=== PATIENT | male | born 1950 | race Caucasian/White ===

== ENCOUNTER 2019-03-16 11:32 | Inpatient (IN) ==
[2019-03-16] MEDS ORDERED: ROCEPHIN 2 GM in NS 50 ML IV ONE (12:30)
[2019-03-16 13:04] LABS: URINE SOURCE CATH
[2019-03-16 13:24] LABS: ALB/GLOB RATIO 1.1; ALBUMIN 3.5 g/dL (3.5-5.0); CALCIUM 9.4 mg/dL (8.8-10.2); CREATININE 1.2 mg/dL (0.7-1.2); TOTAL BILIRUBIN 2.08 mg/dL (0.20-1.00); TOTAL PROTEIN 6.7 g/dL (6.3-8.3)
[2019-03-16 13:27] LABS: BILIRUBIN URINE MODERATE (NEGATIVE); BLOOD URINE SMALL (NEGATIVE); CLARITY CLEAR (CLEAR); COLOR YELLOW; GLUCOSE URINE 100 mg/dL (NEGATIVE); KETONE URINE TRACE mg/dL (NEGATIVE); LEUKOCYTES URINE TRACE (NEGATIVE); NITRITE URINE POSITIVE (NEGATIVE); PH URINE 5.5; PROTEIN URINE >=300 mg/dL (NEGATIVE); SP GRAVITY URINE 1.015; UROBILINOGEN URINE >= 8.0 EU/dL (0.2-1.0)
[2019-03-16 13:28] LABS: BASO# 0.04 X1000 (0.0-0.2); BASO% 0.2 % (0.0-0.8); EOS# 0.13 X1000 (0.0-0.7); EOS% 0.8 % (0.0-10.0); HEMATOCRIT 38.4 % (42.0-52.0); HEMOGLOBIN 12.3 g/dL (14.0-18.0); IMM GRAN# 0.03 X1000 (0.0-0.04); IMM GRAN% 0.2 % (0.0-0.5); LYMPH# 0.69 X1000 (1.2-3.4); LYMPH% 4.2 % (20.5-51.1); MCH 29.1 PG (27-31); MCV 90.8 FL (81-99); MONO# 1.02 X1000 (0.11-0.59); MONO% 6.2 % (1.7-9.3); MPV 9.5 FL (7.4-10.4); NEUT# 14.54 X1000 (1.4-6.5); NEUT% 88.4 % (42.2-75.2); PLT 195 X1000 (130-400); RBC 4.23 XMIL (4.7-6.1); RDW 13.2 % (11.5-14.5); WBC 16.45 X1000 (4.8-10.8)
[2019-03-16 13:43] LABS: URINE RBC <10 /HPF (<10); URINE WBC >10 /HPF (<10)
[2019-03-16] MEDS ORDERED: VANCOMYCIN 1 GM/NS 1 GM/250 ML IVPB IV ONE (13:59)
[2019-03-16 14:08] LABS: LYMPHS 10 % (21-51); MONO 6 % (1-9); SEGS 84 % (42-75)
[2019-03-16 14:45] LABS: INR 1.17; PROTIME 15.1 Seconds (11.0-16.0)
[2019-03-16 14:46] LABS: PTT 36.5 Seconds (22.3-41.8)
[2019-03-16 14:49] LABS: URINE SOURCE CATH
--- NOTE | 2019-03-16 14:55 | Diag Imaging Result Doc PS360 ---
CHEST-1 VIEW - 03/16/2019 INDICATION: Sepsis protocol COMPARISON: 09/28/2016 FINDINGS: The lungs are normally expanded and clear. Heart size and mediastinal contours are normal. No pneumothorax or pleural effusion. IMPRESSION: Negative exam. Electronically signed by Derek August 03/16/2019 2:53 PM
[2019-03-16 15:09] LABS: BILIRUBIN URINE MODERATE (NEGATIVE); BLOOD URINE SMALL (NEGATIVE); COLOR YELLOW; GLUCOSE URINE NEGATIVE (NEGATIVE); KETONE URINE TRACE mg/dL (NEGATIVE); LEUKOCYTES URINE SMALL (NEGATIVE); NITRITE URINE POSITIVE (NEGATIVE); PROTEIN URINE 100 mg/dL (NEGATIVE); SP GRAVITY URINE 1.023; TURBIDITY URINE HAZY (CLEAR); UROBILINOGEN URINE 6 mg/dL (NORMAL)
[2019-03-16 15:10] LABS: UR EPITHELIAL CELLS <10 /HPF (<10); URINE BACTERIA NEGATIVE /HPF; URINE RBC <10 /HPF (<10)
[2019-03-16 15:11] LABS: MAGNESIUM 1.9 mg/dL (1.5-2.7)
[2019-03-16] MEDS ORDERED: DESYREL PO PRN (17:41)
[2019-03-16] MEDS ORDERED: TOBRAMYCIN 80 MG in NS 50 ML IV ONE (17:41)
[2019-03-16] MEDS ORDERED: NORCO-10 PO PRN (17:41)
[2019-03-16] MEDS ORDERED: SODIUM CHLORIDE 0.9% INJ PRN (17:41)
[2019-03-16] MEDS ORDERED: PHENERGAN IV PRN (17:41)
[2019-03-16] MEDS: NS 1,000 ML IV SCH (19:42)
[2019-03-16] MEDS: LEVAQUIN 500 MG/D5W 500 MG/100 ML IVPB IV SCH (19:43)
[2019-03-16] MEDS: LOVENOX SUBQ SCH (21:44)
[2019-03-16] MEDS: ZOSYN 4.5 GM in NS 100 ML IV SCH (22:19)
[2019-03-16] MEDS: FLOMAX PO SCH (23:25)
[2019-03-17] MEDS: ZOSYN 4.5 GM in NS 100 ML IV SCH ×4 (03:42→20:20)
[2019-03-17] MEDS: PRILOSEC PO SCH (06:00)
[2019-03-17 07:56] LABS: BASO# 0.03 X1000 (0.0-0.2); BASO% 0.2 % (0.0-0.8); EOS% 3.1 % (0.0-10.0); HEMATOCRIT 37.7 % (42.0-52.0); IMM GRAN# 0.02 X1000 (0.0-0.04); IMM GRAN% 0.2 % (0.0-0.5); LYMPH# 0.89 X1000 (1.2-3.4); LYMPH% 6.9 % (20.5-51.1); MCH 29.1 PG (27-31); MCHC 31.8 g/dL (33-37); MCV 91.5 FL (81-99); MONO# 0.89 X1000 (0.11-0.59); MONO% 6.9 % (1.7-9.3); MPV 9.4 FL (7.4-10.4); NEUT# 10.61 X1000 (1.4-6.5); NEUT% 82.7 % (42.2-75.2); PLT 215 X1000 (130-400); RBC 4.12 XMIL (4.7-6.1); RDW 13.4 % (11.5-14.5); WBC 12.84 X1000 (4.8-10.8)
[2019-03-17 08:18] LABS: CALCIUM 9.2 mg/dL (8.8-10.2); CREATININE 1.3 mg/dL (0.7-1.2); POTASSIUM 4.1 mmol/L (3.5-5.1)
[2019-03-17] MEDS: NS 1,000 ML IV SCH ×3 (08:21→20:20)
--- NOTE | 2019-03-17 10:57 | PROGRESS NOTE ---
DATE: 03/17/2019 SUBJECTIVE: Mr. Gibbs was admitted to [facility] with UTI with sepsis. We initiated the sepsis protocol. Lactate levels have been low. There is no suggestion of end-organ damage. White count has dropped from 16,000 to 12,000. He continues with dysuria but has less urinary frequency. We had started him on broad-spectrum antibiotics including Levaquin and Zosyn and tobramycin. He does have a history of obstructive sleep apnea. He is wearing CPAP at home and he is using his CPAP machine here. He is sleeping. He had somewhat of a fitful night last night. He reports that he feels rested this morning. He is not having any excessive daytime drowsiness. OBJECTIVE: Vital Signs: Temperature 98.8 degrees pulse 82, respirations 18, BP 127/49, CV: Regular rate and rhythm. Lungs: Clear. Abdomen: Soft, nontender, with active bowel sounds. Back: No CVA tenderness. ASSESSMENT AND PLAN: 1. Urinary tract infection with sepsis. Clinically, he is better. He had fevers as high as 102.6 degrees yesterday. He has not had any fever since admission. We will continue fluid resuscitation and broad-spectrum antibiotics including tobramycin, Zosyn and Levaquin pending blood and urine cultures. 2. Obstructive sleep apnea. We will continue CPAP at night. cc: Sravanthi Sutton MD
--- NOTE | 2019-03-17 13:45 | HISTORY AND PHYSICAL ---
CHIEF COMPLAINT: Fever and chills. HISTORY OF PRESENT ILLNESS: Mr. Victor M Gibbs is a 69-year-old gentleman, with a history of multiple medical problems including obesity, COPD, previous history of tobacco abuse, obstructive sleep apnea, chronic low back pain secondary to lumbar spinal stenosis with neurogenic claudication, BPH, and recurrent nephrolithiasis. He recently was hospitalized at [facility] in [place], [place] where he underwent a successful left total knee. He presented to the ER with a 2-day history of fever as high as 103 degrees, hard shaking rigors, dysuria, increased urinary frequency voiding small amounts of urine, and low back pain. On arrival to the ER he was noted to have a leukocytosis of 16,000 and a fever of 102.4 degrees. A urinalysis demonstrated trace glucose, small blood, positive nitrites, and positive leukocyte esterase. PAST MEDICAL HISTORY: Obstructive sleep apnea, obesity, BPH, COPD, and previous history of tobacco abuse. PAST SURGICAL HISTORY: Left total knee, right total knee, lumbar fusion, multiple lithotripsies. ALLERGIES: No known drug allergies. FAMILY HISTORY: Noncontributory. SOCIAL HISTORY: He is a former smoker. He does not consume alcoholic beverages. He is and lives with his spouse. MEDICATIONS: Flomax 0.4 mg daily. Prevacid 30 mg daily. Aspirin 81 mg daily. REVIEW OF SYSTEMS: Constitutional: He denies any recent weight gain or weight loss. HEENT: He wears glasses. He is somewhat hard of hearing. CV: No chest pain, palpitations, or anginal equivalents. Pulmonary: No shortness of breath, PND or orthopnea. GI: No reflux, dysphagia, melena, hematochezia, change in bowel habits, or rectal bleeding. Endocrine: No polyuria, no polydipsia. No cold or heat intolerance. Skin: No easy bruisability. : See HPI. Musculoskeletal: See HPI. Neurologic: No migraines or seizures. Psychiatric: No history of depression. PHYSICAL EXAMINATION: GENERAL: This is an acutely ill-appearing 69-year-old gentleman in no apparent distress. He is awake and easily arousable. He is oriented to name, place, and time. VITAL SIGNS: Temperature 102.4 degrees, pulse 82, respirations 16, BP 134/96 HEENT: Fundi with arteriolar wall thickening. Pupils equal, round, and reactive to light. Extraocular eye movements intact. NECK: Supple. No masses, JVD or bruits. CV: Regular rate and rhythm. LUNGS: Clear. ABDOMEN: Soft, nontender, with active bowel sounds. No hepatosplenomegaly. No abdominal bruits. EXTREMITIES: Without edema. SKIN: No palpable purpura. BACK: No CVA tenderness. /RECTAL: Deferred. NEUROLOGIC: Nonfocal. DIAGNOSTIC DATA: Various laboratory studies were obtained. A urinalysis demonstrated trace glucose, small blood, positive nitrites, and positive leukocyte esterase. CBC demonstrated a white count of 16.4, hemoglobin 12.3, hematocrit 38.4, and a platelet count of 195,000. He had a left shift. Electrolytes demonstrated the following, sodium 136, potassium 4.0, carbon dioxide 24, BUN 15, creatinine 1.2, and glucose 107. Plasma lactate 0.9. ASSESSMENT AND PLAN: 1. Urinary tract infection with sepsis. He meets the initial criteria for sepsis. He has fever of 102.4 degrees, he has a leukocytosis with a left shift, he has an obvious urinary tract infection. I will begin Levaquin, Zosyn, and tobramycin pending blood and urine cultures. We will rehydrate him with normal saline. We will continue the sepsis protocol. 2. Obstructive sleep apnea. We will continue CPAP at night. 3. Gastroesophageal reflux disease. We will elevate the head of the bed to 45 degrees and continue Prevacid. DISPOSITION: Given his comorbid conditions and clinical presentation, admission to the hospital is necessary. Untreated sepsis certainly can increase the risk of . I anticipate that he will be in the hospital for at least 2 midnights and I will therefore place him in inpatient status. We will begin Lovenox as needed for DVT prophylaxis. cc: Sravanthi Sutton MD
[2019-03-17] MEDS: LEVAQUIN 500 MG/D5W 500 MG/100 ML IVPB IV SCH (18:28)
[2019-03-17] MEDS: FLOMAX PO SCH (20:21)
[2019-03-17] MEDS: TYLENOL PO PRN (20:21)
[2019-03-17] MEDS: LOVENOX SUBQ SCH (20:21)
[2019-03-18] MEDS: ZOSYN 4.5 GM in NS 100 ML IV SCH (01:12)
[2019-03-18] MEDS: PRILOSEC PO SCH (06:27)
[2019-03-18] MEDS ORDERED: TOBRAMYCIN 80 MG in NS 50 ML IV ONE (09:27)
[2019-03-18] MEDS: FLOMAX PO SCH ×2 (10:37→20:21)
--- NOTE | 2019-03-18 11:05 | PROGRESS NOTE ---
DATE: 03/18/2019 SUBJECTIVE: Mr. Gibbs was admitted to [facility] with a UTI with sepsis. Clinically, he feels much better. He is awake and easily arousable. He is oriented to name, place, and time. He still has some dysuria and increased urinary frequency, but denies any low back pain. Urine cultures grew out Pseudomonas aeruginosa. OBJECTIVE: Vital Signs: Temperature 98.9 degrees, pulse 83, respirations 16, BP 152/62. Cardiovascular: Regular rate and rhythm. Lungs: Clear. Abdomen: Soft, nontender, with active bowel sounds. No hepatosplenomegaly. No abdominal bruits. ASSESSMENT AND PLAN: Urinary tract infection with sepsis. Clinically, he is much better. Urine cultures grew out Pseudomonas aeruginosa. I will stop the Zosyn, continue Levaquin and bolus him with tobramycin. I would like to see him afebrile for a full 48 hours before we transition him to oral medications. I will check a CBC and a BMP today. cc: Sravanthi Sutton MD
[2019-03-18 11:20] LABS: BASO# 0.05 X1000 (0.0-0.2); BASO% 0.6 % (0.0-0.8); EOS% 4.8 % (0.0-10.0); HEMATOCRIT 37.3 % (42.0-52.0); HEMOGLOBIN 11.8 g/dL (14.0-18.0); IMM GRAN# 0.03 X1000 (0.0-0.04); IMM GRAN% 0.4 % (0.0-0.5); LYMPH# 0.82 X1000 (1.2-3.4); LYMPH% 9.8 % (20.5-51.1); MCH 28.9 PG (27-31); MCHC 31.6 g/dL (33-37); MCV 91.2 FL (81-99); MONO# 0.74 X1000 (0.11-0.59); MONO% 8.8 % (1.7-9.3); MPV 9.4 FL (7.4-10.4); NEUT# 6.34 X1000 (1.4-6.5); NEUT% 75.6 % (42.2-75.2); PLT 222 X1000 (130-400); RBC 4.09 XMIL (4.7-6.1); RDW 13.3 % (11.5-14.5); WBC 8.38 X1000 (4.8-10.8)
[2019-03-18 11:42] LABS: CALCIUM 9.6 mg/dL (8.8-10.2); CREATININE 1.2 mg/dL (0.7-1.2); POTASSIUM 3.9 mmol/L (3.5-5.1)
[2019-03-18] MEDS: NS 1,000 ML IV SCH ×2 (14:40→14:41)
[2019-03-18] MEDS: LEVAQUIN 500 MG/D5W 500 MG/100 ML IVPB IV SCH (18:05)
[2019-03-18] MEDS: TYLENOL PO PRN (20:20)
[2019-03-18] MEDS: LOVENOX SUBQ SCH (20:21)
[2019-03-19] MEDS: NS 1,000 ML IV SCH (00:33)
[2019-03-19] MEDS ORDERED: PRILOSEC PO SCH (07:00)
[2019-03-19 07:34] VITALS: BP 138/63
[2019-03-19] MEDS: FLOMAX PO SCH (08:57)
[2019-03-19] MEDS ORDERED: LEVAQUIN PO SCH (09:00)
[2019-03-19] MEDS ORDERED: NON-FORMULARY MED (Lansoprazole [Prevacid] 30 MG) PO SCH (09:00)
--- NOTE | 2019-03-20 20:50 | DISCHARGE SUMMARY ---
ADMISSION DATE: 03/16/2019 DISCHARGE DATE: 03/19/2019 DISCHARGE DIAGNOSES: 1. Urinary tract infection with sepsis. 2. Obstructive sleep apnea. 3. Chronic obstructive pulmonary disease. 4. History of nicotine abuse in the past. 5. Chronic low back pain secondary to lumbar spinal stenosis with neurogenic claudication. 6. Benign prostatic hypertrophy with signs of urinary obstruction. 7. Nocturia. DISCHARGE INSTRUCTIONS: 1. Return to clinic in 10 days to see me, Dr. Murray Sutton, in anticipation of a transition of care visit. 2. Activity as tolerated. 3. Healthy heart diet. 4. Levofloxacin 500 mg daily for 12 days, Prevacid 30 mg daily, Flomax 0.4 mg b.i.d. DISCHARGE PHYSICAL EXAMINATION: This is a well-developed, well-nourished, 69-year-old gentleman, no apparent distress. He is afebrile. Vital signs are stable. CV: Regular rate and rhythm. Lungs: Clear. Abdomen: Soft, nontender, with active bowel sounds. Mr. Victor M Gibbs presented to the ER with a 2-day history of fever as high as 103 degrees, hard shaking rigors, dysuria, increased urinary frequency and low back pain. He initially met the criteria for the sepsis protocol and the sepsis protocol was initiated. The patient was rehydrated with normal saline and was started on broad-spectrum antibiotics including Levaquin, Zosyn and tobramycin pending blood and urine cultures. A urine culture grew out Pseudomonas aeruginosa. Blood cultures x2 were negative. With aggressive fluid resuscitation and IV antibiotics, he improved rapidly from a clinical standpoint. He defervesced and remained afebrile. He no longer had any dysuria or increased urinary frequency. We simplified his medications to a combination of IV Levaquin and tobramycin. Once he remained afebrile for 48 hours he was transitioned to oral Levaquin which he will take for an additional 12 days. I will recheck a urine culture following completion of antibiotic therapy. He does have a longstanding history of BPH. He has persistent nocturia, diminished urinary stream and postvoid dribbling. He had been taking Flomax 0.4 mg daily. I increased the Flomax to 0.4 mg b.i.d. He does have a longstanding history of gastroesophageal reflux disease. We initiated anti-reflux precautions and continued Prevacid 30 mg daily. Having reached maximum hospital benefit, the patient was discharged in stable condition. cc: Sravanthi Sutton MD
== END 2019-03-19 09:59 | disposition home or self-care (01) | DRG 872 ==
LOC: ED 11:32 → EDIPHOLD 16:42 → 3N 18:58
PROVIDERS: ADMIT Internal Medicine; ATTEND Internal Medicine

== ENCOUNTER 2019-05-10 10:57 | Inpatient (IN) ==
--- NOTE | 2019-05-10 11:51 | PROVIDER DOCUMENTATION ---
HPI-General Adult - General Chief Complaint: Extremity Pain Stated Complaint: KNOT ON LEFT HIP Time Seen by Provider: 05/10/19 11:11 Source: patient Allergies/Adverse Reactions: Patient Allergies Allergy/AdvReac Type Severity Reaction Status Date / Time No Known Allergies Allergy Verified 03/02/16 09:56 Home Medications: Home Medication List Medication Instructions Recorded Confirmed Last Taken Type Lansoprazole [Prevacid] 30 mg PO DAILY 03/16/19 05/10/19 03/14/19 07:00 History Tamsulosin [Flomax] 0.4 mg PO QHS #60 cap 03/19/19 05/10/19 Unknown Rx Lansoprazole 30 mg PO DAILY 05/10/19 05/10/19 Unknown History Prednisone 10 mg PO DAILY 05/10/19 05/10/19 Unknown History Tamsulosin [Flomax] 0.4 mg PO BID 05/10/19 05/10/19 Unknown History - History of Present Illness -Gen Adult Nature of Presenting Problems: Pt.is 69 yom that presents with c/o knot on his left buttock. He reports it is causing him problems urinating and having BM's. Pt. reports symptoms for several days. He denies any other complaints. Location of Pain/Injury: reports: genitalia. denies: none, head, face, mouth, neck, chest, upper extremity, hand(s), abdomen, back, pelvis, lower extremity, feet, upper body, lower body, generalized, other Pain Radiation: reports: no radiation. denies: arm(s), back, buttocks, chest, epigastric, feet, groin, jaw, flank (L), legs (lower), LLQ, LUQ, neck, periumbilical, flank (R), RLQ, RUQ, shoulder(s), scapula, scrotal, sternal notch, suprapubic, legs (upper), urethral, vaginal, other Quality of Pain: reports: aching. denies: burning, pressure, sharp, tightness Severity: reports: moderate. denies: mild, severe Onset/Duration: reports: gradual, 3 days ago Timing: reports: still present. denies: improving, intermittent, getting worse Context/Activities at Onset: reports: none. denies: light activity, moderate activity, vigorous activity, recent emotional stress, recent physical stress, recent trauma history, possible bad food, cold exposure, eating, out of country travel, rest, sleep, sexual activity, other Modifying Factors: improves with: nothing Associated Symptoms: reports: other (There is a large erythemic and indurated area to the inside of the left buttock that goes near the anus. No fluctuance is noted.). denies: denies symptoms, anxiety, arm pain, back/neck pain, chest pain, constipation, cough, diaphoresis, diarrhea, dizziness, EENT symptoms, fatigue, fever/chills, genitourinary problems, headaches, heartburn, joint pain, loss of appetite, malaise, muscle aches, sinus congestion/drainage, nausea, rash, seizure, shortness of breath, sensory/motor loss, pain with inspiration, swelling/mass in abdomen, syncope, vomiting, weakness, trouble walking Similar Symptoms Previously?: Yes Recently seen or treated by another doctor?: No Review of Systems - Adult - REVIEW OF SYSTEMS - ADULT Constitutional: reports: no symptoms reported Eyes: reports: no symptoms reported Ears, Nose, Mouth & Throat: reports: no symptoms reported Cardiovascular: reports: no symptoms reported Respiratory: reports: no symptoms reported Gastrointestinal: reports: no symptoms reported Genitourinary: reports: no symptoms reported Musculoskeletal: reports: no symptoms reported Integumentary: reports: see HPI, skin thickening (There is a large erythemic and indurated area to the inside of the left buttock that goes near the anus. No fluctuance is noted.). denies: hair loss, mole changes, rash Neurological: reports: no symptoms reported Psychiatric: reports: no symptoms reported Past History - Adult - PAST MEDICAL HISTORY-ADULT Review of Records: reports: Old Records Reviewed, Nursing Assessment Review, Medications Reviewed, Social history reviewed & non-contributory. - IMMUNIZATION STATUS Childhood Immunizations: See Nurse Assessment Flu Vaccine: See Nurse Assessment - FAMILY HISTORY Family History: reviewed, not pertinent - SOCIAL HISTORY Smoking: denies Physical Exam-General - PHYSICAL EXAM-ADULT Initial Vital Signs Reviewed: Yes - CONSTITUTIONAL General Appearance: alert, mild distress, obese. negative: anxious, slow to respond, obtunded, combative - EYES Eyes: PERRL/EOMI, pink conjunctivae - HEAD, EARS, NOSE, MOUTH & THROAT HENMT: normocephalic/atraumatic, moist mucous membranes - NECK Neck: non-tender, full range of motion, supple, normal inspection - RESPIRATORY Respiratory: lungs clear, normal breath sounds - CARDIOVASCULAR Cardiovascular: normal peripheral pulses, regular rate, rhythm, no edema - GASTROINTESTINAL (ABDOMEN) Abdominal Exam: normal bowel sounds, non tender, soft - LYMPHATIC Lymphatic: no adenopathy - MUSCULOSKELETAL Back Exam: normal inspection, no CVA tenderness, no vertebral tenderness Extremity: normal range of motion, non-tender, normal inspection Peripheral Pulses: radial (R): 2+, radial (L): 2+ - SKIN Integumentary: erythema (There is a large erythemic and indurated area to the inside of the left buttock that goes near the anus. No fluctuance is noted.), tenderness (There is a large erythemic and indurated area to the inside of the left buttock that goes near the anus. No fluctuance is noted.). negative: cyanosis, jaundice, rash - NEUROLOGIC Neurologic: grossly normal, no motor/sensory deficits - PSYCHIATRIC Psych/Mental Status: normal mood/affect, normal thought content, normal thought process, oriented x 3. negative: anxious, paranoid, tearful Progress - PLAN OF CARE/RESULTS Progress/Plan/Lab Results: Vital Signs - 8 hr 05/10/19 11:03 Temperature 98.2 F Pulse Rate 64 Respiratory Rate 18 Blood Pressure 149/78 O2 Sat by Pulse Oximetry 96 Orders Category Date Time Status Saline Loc NOW Care 05/10/19 11:47 Active BLOOD CULTURE [BLDCUL] Stat Lab 05/10/19 11:47 Uncollected CBC WITH ELECTRONIC DIFF [HEME] Stat Lab 05/10/19 11:47 Uncollected COMPREHENSIVE METABOLIC PANEL [CHEM] Stat Lab 05/10/19 11:47 Uncollected LACTATE, PLASMA [CHEM] Stat Lab 05/10/19 11:47 Uncollected URINALYSIS W/POSS RFLX CULT [URINALYSIS] Stat Lab 05/10/19 11:47 Uncollected Result Diagrams: 05/10/19 11:56 05/10/19 11:56 - REASSESSMENT Reassessment #1 Time Reassessed: 17:38 Status: worsening (Seen and examined by me. Case discussed with Brandan Segura. Patient requests pain medicine, states pelvis is "killing me." IV morphine/zofran ordered by me.) - CONSULTS/PCP/HOSPITALIST Notification #1 *Consult/PCP/Hospitalist*: Time Discussed: 15:08 Reason/Comments: Consult Consult Disposition: other (Have Dr. Sutton admit and he will see and I and D if needed.) #2 Consult: Dr. Gaines Time Discussed: 15:39 Reason/Comments: Admission Consult Disposition: Will see in ED, Admit Departure - Departure Date of Disposition Decision: 05/10/19 Time of Disposition Decision: 15:09 DIAGNOSIS: Perianal abscess Disposition: ADMITTED INPATIENT 09 Certified Medical Emergency: Emergent Condition: Stable - Critical Care Note This patient required my direct & personal management of CC.: No Attestation - Physician/ SCOTT Attestation Patient care was provided by Advanced Practice Provider:: Yes Advanced Practice Provider:: Eduarda Segura Advanced Practice Provider documentation review:: The Mid-level provider documentation, treatment plan and medical decision making was reviewed by the physician who agrees with all treatment and medical decision making by the MLP. The physician spent face to face time with patient:: Yes (Seen by me at [id number]) Advanced Practice Provider documentation review:: Supervising physician onsite and consulted in the evaluation and care of this patient. The physician did have a face to face encounter with the patient.
[2019-05-10 12:00] LABS: URINE SOURCE CLEAN CATCH
[2019-05-10 12:28] LABS: BILIRUBIN URINE NEGATIVE (NEGATIVE); BLOOD URINE TRACE (NEGATIVE); COLOR YELLOW; GLUCOSE URINE NEGATIVE (NEGATIVE); KETONE URINE NEGATIVE (NEGATIVE); TURBIDITY URINE CLEAR (CLEAR); UR EPITHELIAL CELLS <10 /HPF (<10); URINE RBC <10 /HPF (<10); URINE WBC <10 /HPF (<10)
[2019-05-10 12:29] LABS: LEUKOCYTES URINE NEGATIVE (NEGATIVE); NITRITE URINE NEGATIVE (NEGATIVE); PROTEIN URINE TRACE mg/dL (NEGATIVE); URINE BACTERIA 1+ /HPF; UROBILINOGEN URINE NORMAL (NORMAL)
[2019-05-10 12:42] LABS: BASO# 0.04 X1000 (0.0-0.2); BASO% 0.3 % (0.0-0.8); EOS# 0.23 X1000 (0.0-0.7); EOS% 1.5 % (0.0-10.0); HEMATOCRIT 42.8 % (42.0-52.0); HEMOGLOBIN 13.3 g/dL (14.0-18.0); IMM GRAN# 0.05 X1000 (0.0-0.04); IMM GRAN% 0.3 % (0.0-0.5); LYMPH# 0.69 X1000 (1.2-3.4); LYMPH% 4.6 % (20.5-51.1); MCH 28.2 PG (27-31); MCHC 31.1 g/dL (33-37); MCV 90.7 FL (81-99); MONO# 1.17 X1000 (0.11-0.59); MONO% 7.8 % (1.7-9.3); MPV 9.5 FL (7.4-10.4); NEUT# 12.76 X1000 (1.4-6.5); NEUT% 85.5 % (42.2-75.2); PLT 223 X1000 (130-400); RBC 4.72 XMIL (4.7-6.1); RDW 13.4 % (11.5-14.5); WBC 14.94 X1000 (4.8-10.8)
[2019-05-10 12:58] LABS: AGAP 13; ALBUMIN 3.6 g/dL (3.5-5.0); ALKALINE PHOSPHATASE 116 U/L (32-122); BUN 17 mg/dL (8-22); CALCIUM 9.9 mg/dL (8.8-10.2); CHLORIDE 98 mmol/L (98-107); COSMO 280; CREATININE 1.1 mg/dL (0.7-1.2); ESTIMATED GFR > 60; GLUCOSE 113 mg/dL (70-104); GOT 24 U/L (10-34); GPT 28 U/L (10-44); POTASSIUM 4.4 mmol/L (3.5-5.1); SODIUM 139 mmol/L (136-145); TCO2 28 mmol/L (25-35); TOTAL BILIRUBIN 1.71 mg/dL (0.20-1.00); TOTAL PROTEIN 7.1 g/dL (6.3-8.3)
--- NOTE | 2019-05-10 14:44 | Diag Imaging Result Doc PS360 ---
EXAM: CT ABD/PELVIS W/IV CONT ONLY HISTORY: Possible gia-rectal abscess TECHNIQUE: CT abdomen and pelvis with intravenous contrast COMPARISON: 02/24/2018 FINDINGS: The gallbladder has been removed. There is fatty infiltration of the liver. No splenomegaly. Normal pancreas and adrenal glands. No solid renal masses. No hydronephrosis. Mild atherosclerosis. No aortic aneurysm. Postsurgical changes and degenerative changes in the lumbar spine Normal appendix. No intra-abdominal abscess. No bowel obstruction. The urinary bladder is distended and appears normal. Left perianal fluid and inflammation with a small amount of air in the subcutaneous buttocks fat. This measures approximately 3.5 x 4.5 cm. IMPRESSION: Likely developing left perianal abscess This exam was performed using automated exposure control, adjustment of mA or kV according to patient size, and/or use of iterative reconstruction technique. Electronically signed by Tom Ritter 05/10/2019 2:42 PM
[2019-05-10] MEDS ORDERED: VANCOMYCIN 1 GM/NS 1 GM/250 ML IVPB IV ONE (15:06)
[2019-05-10] MEDS ORDERED: MEFOXIN 1 GM/NS 1 GM/50 ML IVPB IV ONE (16:00)
[2019-05-10] MEDS ORDERED: MORPHINE IV ONE (17:37)
[2019-05-10] MEDS ORDERED: ZOFRAN IV ONE (17:37)
--- NOTE | 2019-05-10 17:46 | HISTORY AND PHYSICAL ---
CHIEF COMPLAINT: A knot on his behind. HISTORY OF PRESENT ILLNESS: Mr. Gibbs is a 69-year-old gentleman with a history of multiple medical problems, including obesity, COPD, previous history of tobacco use, MAGDALENO, chronic low back pain due to lumbar spinal stenosis, BPH and recurrent nephrolithiasis. Approximately 2 days ago, he noticed a tender sore area on his behind on the left side of the rectum. This progressively increased, and today he called the ambulance to bring himself to the hospital. His is at the bedside. He has had no fever. His temperature here is normal. He denies any shaking chills. He has had some dysuria. He was admitted to this hospital in early March with a UTI following left knee surgery at an outlying hospital. His urinalysis here today is normal with no evidence of infection although his entire pelvis feels somewhat sore. He has also felt somewhat constipated and having difficulty passing stool. PAST MEDICAL HISTORY: Remarkable for MAGDALENO, obesity, BPH, history of COPD although he quit smoking years ago. PAST SURGICAL HISTORY: Recent left total knee in late February, also previous right total knee, lumbar fusion and multiple procedures for ureteral and kidney stones. ALLERGIES: No known drug allergies. FAMILY HISTORY: Noncontributory. SOCIAL HISTORY: He is and lives with his . He is a former smoker but has not smoked in over 5 years. HOME MEDICATIONS: Flomax 0.4 mg daily, aspirin 81 mg daily, Prevacid 30 mg daily. REVIEW OF SYSTEMS: GENERAL: Appetite has been good. No recent weight loss, headache or fever. HEENT: He wears glasses. He has selective hearing. RESPIRATORY: No shortness of breath or orthopnea. CARDIOVASCULAR: No history of ischemic heart disease, angina, congestive heart failure or valvular heart disease. GASTROINTESTINAL: No recent reflux symptoms, dysphagia, melena, hematochezia or rectal bleeding. ENDOCRINE: No history of diabetes. No history of thyroid disorders. SKIN: No rash or easy bruisability. GENITOURINARY: Some burning with urination. MUSCULOSKELETAL: Scattered osteoarthritic complaints. NEUROLOGIC: No history of migraines or seizures. PSYCHIATRIC: No history of memory loss or depression. PHYSICAL EXAMINATION: VITAL SIGNS: Temperature 98.2, blood pressure 165/75, pulse 95, O2 sat 93% on room air. GENERAL APPEARANCE: An alert, pleasant elderly gentleman in no distress. SKIN: There is no rash. Skin turgor is adequate. HEENT: Pupils equal, round, and reactive to light. Extraocular movements are intact. Oropharynx is benign. NECK: Supple with no adenopathy, JVD or bruits. CARDIOVASCULAR: There is a regular rate and rhythm. Normal S1 and S2. No S3, S4 or murmurs. LUNGS: Clear to auscultation anteriorly and posteriorly. ABDOMEN: Soft and nontender with active bowel sounds. No suprapubic tenderness. No hepatosplenomegaly. No abnormal bruits. EXTREMITIES: No edema. Peripheral pulses are 2+ and equal. BACK: No CVA tenderness. NEUROLOGICAL: Nonfocal. Gait is not tested. LABORATORY DATA: WBC 14,900, hemoglobin 13.3, hematocrit 42.8%, 86% neutrophils. Electrolytes are normal. BUN 17, creatinine 1.1, glucose 113, bilirubin 1.7, plasma lactate 1.4. ASSESSMENT: 1. Perirectal abscess as documented on abdominal and pelvic CT. 2. History of recurrent nephrolithiasis and ureterolithiasis. 3. History of COPD, currently asymptomatic. 4. Obstructive sleep apnea on home CPAP. TREATMENT PLAN: We will treat with IV cefoxitin to cover gram negatives and anaerobes. His previous urinary tract infection was a multiply resistant pseudomonas, but I doubt he has this now as he has not been hospitalized recently. is aware and will see him later this evening and my drain his abscess tomorrow or Tuesday. We will continue home CPAP. cc: Travon Gaines MD
[2019-05-10] MEDS ORDERED: ZOFRAN ODT PO PRN (17:49)
[2019-05-10] MEDS ORDERED: FLOMAX PO SCH (21:00)
[2019-05-10] MEDS: PERCOCET-5 PO PRN (23:55)
[2019-05-11] MEDS: MEFOXIN 1 GM/NS 1 GM/50 ML IVPB IV SCH ×4 (00:09→18:26)
--- NOTE | 2019-05-11 07:26 | EKG Report ---
Test Performed on : 05/10/2019 6:41:37 PM Test Reason : PAIN Blood Pressure : / mmHG Vent. Rate : 105 BPM Atrial Rate : 105 BPM P-R Int : 132 ms QRS Dur : 146 ms QT Int : 372 ms P-R-T Axes : 057 -20 113 degrees QTc Int : 491 ms Sinus tachycardia. with premature atrial complexes. Left bundle branch block Abnormal ECG No previous ECGs available Confirmed by Cira OLVERA, Dillan ([id number]) on 05/11/2019 11:24:00 AM
[2019-05-11 07:47] LABS: BASO# 0.04 X1000 (0.0-0.2); BASO% 0.2 % (0.0-0.8); EOS# 0.07 X1000 (0.0-0.7); EOS% 0.4 % (0.0-10.0); HEMATOCRIT 39.3 % (42.0-52.0); HEMOGLOBIN 12.3 g/dL (14.0-18.0); IMM GRAN# 0.06 X1000 (0.0-0.04); IMM GRAN% 0.3 % (0.0-0.5); LYMPH% 5.3 % (20.5-51.1); MCH 28.1 PG (27-31); MCHC 31.3 g/dL (33-37); MCV 89.9 FL (81-99); MONO# 1.87 X1000 (0.11-0.59); MONO% 9.8 % (1.7-9.3); MPV 9.6 FL (7.4-10.4); PLT 220 X1000 (130-400); RBC 4.37 XMIL (4.7-6.1); RDW 13.5 % (11.5-14.5); WBC 19.04 X1000 (4.8-10.8)
[2019-05-11] MEDS: PERCOCET-5 PO PRN ×2 (08:07→14:57)
[2019-05-11 08:08] LABS: INR 1.11; PROTIME 14.4 Seconds (11.0-16.0)
[2019-05-11] MEDS: PRILOSEC PO SCH (08:08)
--- NOTE | 2019-05-11 08:44 | GENERAL SURGERY CONSULTATION ---
DATE: 05/11/2019 CHIEF COMPLAINT: Possible perianal abscess. HISTORY: This is a 69-year-old patient of Dr. Murray Sutton who reports a tender area in his left side of his rectum that began apparently on the or . He was admitted on the . CT scan suggest a possible low-density area in his perianal area. He was admitted by Dr. Gaines for Dr. Sutton, was placed on antibiotic therapy, and I have been asked to see him. His other medical problems include COPD, osteoarthritis, chronic low back pain, lumbar stenosis, BPH and nephrolithiasis. PAST SURGICAL HISTORY: Previous surgery includes: 1. A total knee replacement. 2. History of a right total knee replacement. 3. Lumbar fusion. 4. Multiple procedures for ureteral and kidney stones. MEDICATIONS: Flomax, aspirin and Prevacid. ALLERGIES: He has no known drug allergies. FAMILY HISTORY: Family history not known. SOCIAL HISTORY: He has an attentive . Former smoker. REVIEW OF SYSTEMS: Negative in the subsystems, except the ones as noted in the history of present illness. PHYSICAL EXAMINATION: Vital Signs: His temperature is 100.2 degrees, heart rate 104, blood pressure 136/67. Lungs: Sound clear. Skin: He has erythema on the left buttock cheek. He denies particular tenderness, however. Heart: Regular rate and rhythm. PLAN: The plan will be incision and drainage of the perianal abscess. I have discussed this with him. We are keeping him n.p.o. cc: MD Sravanthi Chavez MD
[2019-05-11] MEDS: FLAGYL 500 MG/NS 500 MG/100 ML IVPB IV SCH ×3 (08:47→20:03)
[2019-05-11] MEDS: NS 1,000 ML IV SCH (08:47)
--- NOTE | 2019-05-11 09:33 | PROGRESS NOTE ---
DATE: 05/11/2019 SUBJECTIVE: Mr. Gibbs was admitted to [facility] with a left perirectal abscess. He has a leukocytosis of 19,000 and continues to run low-grade fever with a T-max of 100.2 degrees. He is on broad-spectrum IV antibiotics including cefoxitin 1 g IV q.6 hours and Flagyl 500 mg IV q.6 hours. He is scheduled for surgical incision and debridement later today. OBJECTIVE: Vital signs: Temperature 100.2 degrees, pulse 104, respirations 20, BP 136/67. Cardiovascular: Regular rate and rhythm. Lungs: Clear. Abdomen: Soft, nontender, with active bowel sounds. DIAGNOSTIC DATA: Electrolytes demonstrated the following: Sodium 139, potassium 4.4, BUN 17, creatinine 1.1, glucose 113. A CBC demonstrated white count 19,000, hemoglobin 12.3, hematocrit 39.3 and a platelet count 223,000. ASSESSMENT AND PLAN: Perirectal abscess. He has a leukocytosis. He is mildly tachycardic. He does have a left shift. He does meet the initial criteria for the sepsis protocol. There is certainly no evidence of any severe sepsis such as with hypotension or end organ dysfunction. We will continue broad-spectrum antibiotics, and he is scheduled for surgical I D of the abscess later today. cc: Sravanthi Sutton MD
[2019-05-11] MEDS: FLOMAX PO SCH ×3 (12:18→20:04)
[2019-05-11] MEDS ORDERED: XYLOCAINE-MPF 2% ONE (12:53)
[2019-05-11] MEDS ORDERED: DIPRIVAN 1% ONE (12:53)
[2019-05-11] MEDS ORDERED: OFIRMEV 1000 MG/ISOTONIC SOLN 1,000 MG/100 ML BOTTLE ONE (13:51)
[2019-05-11] MEDS ORDERED: ZOFRAN ONE (13:52)
[2019-05-11] MEDS ORDERED: DILAUDID ONE (13:54)
--- NOTE | 2019-05-11 14:39 | OPERATIVE NOTE ---
PROCEDURE DATE: 05/11/2019 PREOPERATIVE DIAGNOSIS: Perirectal abscess. POSTOPERATIVE DIAGNOSIS: Perirectal abscess. PROCEDURE: I and D of perirectal abscess. DESCRIPTION OF PROCEDURE: Satisfactory general anesthesia was achieved. An LMA was used. The patient is placed in the candy-cane stirrups. The left knee was supported throughout the case. The scrotum was lifted up and held in retraction. The perianal area was prepped and draped in a sterile fashion. I made a vertical incision into the area of erythema that was enlarged and pointing. We entered the abscess cavity, which is fairly high up into the subcutaneous fat. Cultures were taken. Copious amounts of pus came forth. We then had to place a Gelpi retractor so that we could get into the cavity and excise the necrotic tissue as best we could. We broke up all loculations that were present. After debridement and breaking up the loculations, we then copiously irrigated it. Hemostasis was satisfactorily achieved in the subcutaneous tissue with electrocautery. We then packed it with Betadine-impregnated Kerlix into the cavity, covered by ABD and mesh panties. He tolerated it well and was sent to the recovery room in satisfactory condition. cc: MD Sravanthi Chavez MD MTDD
[2019-05-11] MEDS ORDERED: PERCOCET-5 ONE (14:56)
[2019-05-11] MEDS ORDERED: MORPHINE IV PRN (15:39)
[2019-05-11 20:05] LABS: URINE SOURCE CATH
[2019-05-11 20:07] LABS: BILIRUBIN URINE NEGATIVE (NEGATIVE); BLOOD URINE NEGATIVE (NEGATIVE); COLOR YELLOW; GLUCOSE URINE NEGATIVE (NEGATIVE); KETONE URINE TRACE mg/dL (NEGATIVE); LEUKOCYTES URINE NEGATIVE (NEGATIVE); NITRITE URINE NEGATIVE (NEGATIVE); PH URINE 6.5; PROTEIN URINE 30 mg/dL (NEGATIVE); SP GRAVITY URINE 1.035; TURBIDITY URINE CLEAR (CLEAR); UROBILINOGEN URINE NORMAL (NORMAL)
[2019-05-11 20:09] LABS: UR EPITHELIAL CELLS <10 /HPF (<10); URINE BACTERIA NEGATIVE /HPF; URINE RBC <10 /HPF (<10); URINE WBC <10 /HPF (<10)
[2019-05-12] MEDS: MEFOXIN 1 GM/NS 1 GM/50 ML IVPB IV SCH ×4 (00:08→18:19)
[2019-05-12] MEDS: NS 1,000 ML IV SCH ×3 (00:08→16:46)
[2019-05-12] MEDS: FLAGYL 500 MG/NS 500 MG/100 ML IVPB IV SCH ×4 (01:45→21:17)
[2019-05-12] MEDS: PERCOCET-5 PO PRN ×3 (03:26→21:17)
[2019-05-12 07:56] LABS: BASO# 0.03 X1000 (0.0-0.2); BASO% 0.2 % (0.0-0.8); EOS# 0.41 X1000 (0.0-0.7); EOS% 2.3 % (0.0-10.0); HEMATOCRIT 35.3 % (42.0-52.0); IMM GRAN# 0.06 X1000 (0.0-0.04); IMM GRAN% 0.3 % (0.0-0.5); LYMPH% 7.4 % (20.5-51.1); MCH 28.4 PG (27-31); MCHC 31.2 g/dL (33-37); MONO# 1.08 X1000 (0.11-0.59); MONO% 6.2 % (1.7-9.3); MPV 9.1 FL (7.4-10.4); NEUT# 14.62 X1000 (1.4-6.5); NEUT% 83.6 % (42.2-75.2); PLT 196 X1000 (130-400); RBC 3.88 XMIL (4.7-6.1); RDW 13.3 % (11.5-14.5)
--- NOTE | 2019-05-12 08:55 | GENERAL SURGERY PROGRESS NOTE ---
DATE: 05/12/2019 SUBJECTIVE: Patient says he is feeling okay. OBJECTIVE: Vital Signs: Patient's current temperature is 101.9 degrees, pulse 110, blood pressure 150/79. General: No acute distress. Cardiovascular: Some tachycardia. Lungs: Grossly clear. Abdomen: Soft, nontender. Gluteal region packing removed, still with some drainage noted. Erythema is minimal around the wound. ASSESSMENT AND PLAN: A 69-year-old gentleman status post incision and drainage of perirectal abscess. Incision and drainage. At this time, removed previous packing, but we will do Vashe wet-to-dry twice a day just because of the drainage. We will monitor for right now given his fever and tachycardia. Recommend continuing his antibiotics for right now. cc: MD Sravanthi Christy MD
[2019-05-12] MEDS: FLOMAX PO SCH ×2 (10:04→21:19)
[2019-05-12] MEDS: PRILOSEC PO SCH (10:04)
--- NOTE | 2019-05-12 10:13 | PROGRESS NOTE ---
DATE: 05/12/2019 SUBJECTIVE: The patient had some fever last night. He is ate well this morning and seems to be recovering from his abscess drainage. Surgical note was reviewed. The patient's requested consultation with Urology. The patient had difficulty postoperatively with voiding and she stated that his problems with voided long predated his operation and recent illness with this abscess. Apparently they scanned his bladder yesterday and put in a Christina catheter with a fairly large volume return. In the past he has seen Dr. Zapien for this. OBJECTIVE: Vital Signs: T-max 101.9 degrees. Temperature now is 98.3, pulse rate 91, respiration 17, blood pressure 155/88. General: The patient was asleep on a CPAP machine at the time of my arrival. He was easily arousable, conversive and seemed appropriate. He voiced no complaints. Lungs: Are clear to auscultation. Cardiovascular: Is regular. Abdomen: Shows bowel sounds are present. He is nontender and nondistended. He has yellow slightly dark urine in his Christina catheter. LABORATORY: White cell count was 17.5, hemoglobin 11.0. No chemistries were drawn. Urinalysis from admission was negative. MICROBIOLOGY: Initial Gram stain from the perirectal abscess shows white cells and gram-positive cocci. ASSESSMENT AND PLAN: 1. The patient's perirectal abscess has been addressed. Dr. Dennis removed the packing. He is going to have dressing changes. Initial culture results from the perirectal abscess are not yet available. The Gram stain showed gram-positive cocci. As a result, I am going to add some vancomycin until we showed that this is not a staph infection. Chiefly given his spike of fever yesterday we will continue to monitor this closely. 2. Dr. Tommy House has been consulted in the place of Dr. Zapien who is the patient's regular urologist. Apparently, his urinary difficulty predated the patient's recent illness and surgery. He has been treated for multiple kidney stones in the past. 3. The patient's sleep apnea has been treated with a CPAP. 4. The patient does have a history of benign prostatic hyperplasia. Dr. House need to address this. He is on Flomax already. 5. Diagnosis of COPD with remote smoking history as noted. 6. I do not see a specific order for deep venous thrombosis prophylaxis. We will put on intermittent compression boots if that has not already been ordered. cc: MD Sravanthi Curtis MD
[2019-05-12] MEDS: VANCOMYCIN 1 GM/NS 1 GM/250 ML IVPB IV SCH ×2 (11:42→21:16)
--- NOTE | 2019-05-12 14:01 | CONSULTATION ---
DATE OF CONSULTATION: 05/12/2019 CHIEF COMPLAINT: Urinary retention. HISTORY OF PRESENT ILLNESS: Mr. Gibbs is a 69-year-old with obesity, COPD, obstructive sleep apnea, BPH, recurrent nephrolithiasis, who presented to the hospital with a left-sided perirectal abscess on CT scan after feeling a knot in his left gluteal area. The patient has undergone incision and drainage by yesterday. The patient has been having difficulty with urination and had a catheter inserted due to elevated PVR over 900 cc yesterday. The patient has known BPH, has been seen previously by Dr. Zapien and currently takes Flomax 0.8 mg daily. The patient states that he often will have a weak urinary stream and straining to urinate but this progressively worsened after his current event with the rectal abscess. The patient had a fever up to 101.9 degrees last night with a white blood cell count of 19 yesterday and 17 today. The patient denies any dysuria, but had frequency prior to the catheter being inserted. The patient states he has a long history of kidney stones and has had multiple procedures for them in the past with multiple ureteroscopies as well as extracorporal shockwave lithotripsies for treatment of stones. The patient's catheter has been draining well with clear yellow urine. The patient has been followed by General Surgery and had his packing removed earlier today. He was admitted last month and was treated for a urinary tract infection that grew Pseudomonas. PAST MEDICAL HISTORY: 1. Obstructive sleep apnea. 2. BPH. 3. Obesity. 4. COPD. 5. Spinal stenosis. 6. Osteoarthritis. PAST SURGICAL HISTORY: 1. Left knee replacement in February. 2. Right knee replacement. 3. Lumbar fusion. 4. Multiple interventions for kidney stones. ALLERGIES: No known drug allergies. HOME MEDICATIONS: 1. Prilosec 40 mg daily. 2. Flomax 0.4 mg daily. FAMILY HISTORY: Denies family history of malignancy. SOCIAL HISTORY: Former smoker but has subsequently stopped. He is . REVIEW OF SYSTEMS: A 12 point review of systems and all pertinent positives and negatives in HPI. PHYSICAL EXAMINATION: Vital Signs: Temperature 98.3 degrees, heart rate 91, blood pressure 155/88, oxygen 96% on room air. General: No acute distress. Resting comfortably in bed, wearing a CPAP machine. HEENT: Normocephalic, atraumatic. Pupils equal, round, reactive to light. Neck: Trachea midline with no masses. Respiratory: Good respiratory effort. The patient had a CPAP in place. Cardiovascular: Regular rate and rhythm. No evidence of lower extremity edema. Abdomen: Soft, nontender, nondistended. No palpable masses or hepatosplenomegaly. Genitourinary: No suprapubic tenderness. No CVA tenderness. Urethral catheter in place draining clear yellow urine. Uncircumcised phallus with orthotopic meatus. Bilateral testicles palpated. Slight thickening of the left epididymis with small bilateral hydroceles palpated. Digital Rectal exam: Shows a normal prostate, no palpable fluctuance. The prostate measures about 45 g. No nodules are present. The patient has a perirectal incision on the left side measuring 5 cm. I was able to probe this with no active infection. I was able to probe medially to the rectum itself with the incision transversing almost the extent of my finger. Could not feel the bottom portion of the incision. No packing present. Dressing near the incision itself with purulent drainage. Musculoskeletal: Evidence of bilateral lower extremity knee incisions. Moving all extremities. Neurologic: Gross motor and sensory intact. Skin: No obvious skin lesions or rashes. LABORATORY DATA: White blood cell count from today 17.5, hemoglobin 11, hematocrit 35.3, platelets 196,000. No BMP from today. Urinalysis showed no evidence of infection. Gram stain of his wound growing gram positive cocci 2+ and gram positive rods 1+ next. IMAGING: CT of abdomen and pelvis from 05/10/2019. Images reviewed which showed a large perirectal abscess in the left gluteal area. The patient's bladder is slightly distended on imaging with a small amount of hydronephrosis bilaterally. No obvious obstructing stones or lesions are seen. Abscess seems to be near the urethra, but seems to not involve the urethra itself. ASSESSMENT AND PLAN: Mr. Gibbs is a 69-year-old who presents in evaluation for lower urinary tract symptoms and urinary retention. The patient recently had incision and drainage of perirectal abscess by , a large amount of purulence was removed. The patient has been seen previously by Dr. Zapien for recurrent kidney stones and BPH. On digital rectal exam today, I can feel his prostate and it seems to be uninvolved related to the prior drainage of the fluid from his gluteal area. I was able to probe the wound and it seemed to be lateral to the rectum itself. The patient's urinalysis on evaluation showed no evidence of leukocytes or blood. I do not think the patient has active urinary tract infection. In reviewing the imaging, it does seem that the abscess is quite close to the urethra itself. If the patient continues to have issues, may have to consider cystoscopy for further evaluation. The patient states that he was recently treated for a urinary tract infection several months ago and grew Pseudomonas at that time. From a urologic standpoint, would continue with indwelling catheter in at this time. Would leave it in for several days and could consider removal of catheter tomorrow or on Tuesday for a voiding trial. If the patient continues to have issues with urination, may need to consider cystoscopy for further evaluation for obstruction. The patient has been on Flomax 0.8 mg for some time now and his prostate is slightly enlarged on digital rectal exam and imaging study. We will continue on broad-spectrum antibiotics per General Surgery. We will continue to monitor from a urologic standpoint. Please call with questions or concerns. cc: MD Sravanthi Thomas MD MTDD
[2019-05-13] MEDS: MEFOXIN 1 GM/NS 1 GM/50 ML IVPB IV SCH ×2 (00:38→05:48)
[2019-05-13] MEDS: NS 1,000 ML IV SCH (00:39)
[2019-05-13] MEDS: FLAGYL 500 MG/NS 500 MG/100 ML IVPB IV SCH (02:29)
[2019-05-13] MEDS: PERCOCET-5 PO PRN ×4 (03:12→18:36)
--- NOTE | 2019-05-13 07:12 | GENERAL SURGERY PROGRESS NOTE ---
DATE: 05/13/2019 SUBJECTIVE: The patient seems to be doing okay. He has had bowel movements. The nursing staff has been changing his dressing. OBJECTIVE: Vital Signs: The patient is currently afebrile. Vital signs are stable. HEENT: Normocephalic, atraumatic. Pupils equal, round, reactive to light. Mucous membranes moist. Oropharynx benign. Neck: Supple. Trachea midline. Cardiovascular: Regular rate and rhythm. Lungs: Grossly clear. Abdomen: Soft, nontender, nondistended. Gluteal region essentially unchanged. Packing noted. Extremities: Moves all extremities. Neurologic: Grossly intact. Skin: No signs of jaundice. Vascular: All extremities perfused. Laboratory: Reviewed from yesterday. White blood cell count was still elevated at 17 yesterday. He does have labs from this morning which were pending. ASSESSMENT AND PLAN: A 69-year-old gentleman status post incision and drainage of perirectal abscess. Status post incision and drainage. At this time, we will continue local wound care with Vashe wet- to-dry. I would like to see his white blood cell count decrease. He has not had any fever since yesterday morning. I would like to continue to monitor him for at least another day. cc: MD Sravanthi Christy MD
[2019-05-13 08:01] LABS: BASO# 0.03 X1000 (0.0-0.2); BASO% 0.2 % (0.0-0.8); EOS# 0.43 X1000 (0.0-0.7); EOS% 3.3 % (0.0-10.0); HEMATOCRIT 34.9 % (42.0-52.0); HEMOGLOBIN 10.7 g/dL (14.0-18.0); IMM GRAN# 0.03 X1000 (0.0-0.04); IMM GRAN% 0.2 % (0.0-0.5); LYMPH# 1.43 X1000 (1.2-3.4); MCHC 30.7 g/dL (33-37); MCV 91.4 FL (81-99); MONO# 0.77 X1000 (0.11-0.59); MONO% 5.9 % (1.7-9.3); MPV 9.5 FL (7.4-10.4); NEUT# 10.27 X1000 (1.4-6.5); NEUT% 79.4 % (42.2-75.2); PLT 224 X1000 (130-400); RBC 3.82 XMIL (4.7-6.1); RDW 13.5 % (11.5-14.5); WBC 12.96 X1000 (4.8-10.8)
[2019-05-13 08:20] LABS: AGAP 13; ALB/GLOB RATIO 0.7; ALBUMIN 2.3 g/dL (3.5-5.0); ALKALINE PHOSPHATASE 103 U/L (32-122); BUN 12 mg/dL (8-22); CALCIUM 8.7 mg/dL (8.8-10.2); CHLORIDE 102 mmol/L (98-107); COSMO 279; ESTIMATED GFR > 60; GLUCOSE 98 mg/dL (70-104); GOT 24 U/L (10-34); GPT 18 U/L (10-44); POTASSIUM 3.7 mmol/L (3.5-5.1); SODIUM 140 mmol/L (136-145); TCO2 25 mmol/L (25-35); TOTAL BILIRUBIN 0.82 mg/dL (0.20-1.00); TOTAL PROTEIN 5.6 g/dL (6.3-8.3)
--- NOTE | 2019-05-13 09:09 | PROGRESS NOTE ---
DATE: 05/13/2019 SUBJECTIVE: No acute events overnight. The patient remains afebrile. His catheter has been draining well with 1675cc recorded yesterday. The patient was able to have a bowel movement yesterday. He denies any blader pain or pressure. OBJECTIVE: Vital Signs: Temperature 97.9 degrees, heart rate 83, blood pressure 129/67, oxygen saturation 96% on room air. General: No acute distress. Resting comfortably in bed. Alert and oriented x3. Respiratory: Good respiratory effort without audible wheezing or rales. Abdomen: Soft, nontender, nondistended. : No suprapubic tenderness. No CVA tenderness. Urethral catheter in place, draining clear yellow urine. LABORATORY DATA: White blood cell count 12.9, hemoglobin 10.7, hematocrit 34.9, platelets 224,000. Sodium 140, potassium 3.7, chloride 102, bicarb 25, BUN 12, creatinine 1.0, glucose 98, calcium 8.7. ASSESSMENT AND PLAN: Mr. Gibbs is a 69-year-old with obstructive sleep apnea, benign prostatic hypertrophy, obesity, chronic obstructive pulmonary disease, spinal stenosis, and osteoarthritis, who presents in consultation regarding urinary retention. The patient has a history of benign prostatic hypertrophy, and is on Flomax 2 tablets daily, which he started several weeks ago. He previously was only on 1 tablet for multiple years, and then had it increased by Dr. Sutton. The patient's symptoms were complicated by developing a perirectal abscess, which was drained by General Surgery. The patient seemingly has been doing well. His infection count is downtrending. He remains afebrile for the past 24 hours. The patient has been minimally ambulatory. I encouraged him to try to be more ambulatory. The patient tentatively will be watched another day by General Surgery. I would plan to remove his Christina catheter in the morning in preparation for discharge. If the patient was unable to void, and the catheter had to be reinserted, and the patient can follow up with Dr. Zapien in the office. If the patient is able to urinate and keeps a low postvoid residual, then would continue to monitor from a urologic standpoint in the outpatient setting. Will continue on Flomax twice daily at this time. If he continues to have issues, would have to either consider transurethral resection of prostate versus addition of finasteride. Would hold off at this time. I think a lot of this is related to the perirectal abscess putting pressure on the prostate and urethra. The patient has had some recent urinary tract infections as well as difficulty with urination. Will continue to monitor while inpatient. Please call with questions or concerns. cc: MD Sravanthi Thomas MD MTDD
[2019-05-13] MEDS: FLOMAX PO SCH ×2 (09:25→21:44)
[2019-05-13] MEDS: PRILOSEC PO SCH (09:25)
[2019-05-13] MEDS: ROCEPHIN 1 GM in NS 50 ML IV SCH (09:38)
--- NOTE | 2019-05-13 11:37 | PROGRESS NOTE ---
DATE: 05/13/2019 SUBJECTIVE: The patient seems to be doing well. He complains of back pain and general discomfort postoperatively. He does have some chronic back pain, which is exacerbated by being laid up in the bed postoperatively. Consultation with Urology was undertaken yesterday. No immediate action will be taken, but will be addressed in followup. OBJECTIVE: Vital Signs: Temperature 97.9, pulse 83, respirations 18, blood pressure 129/67, saturating 96% on room air. General: The patient is alert, oriented, conversive, and appropriate. Lungs: Clear to auscultation bilaterally. Cardiovascular: Regular. Bowel sounds are present. The patient notes that he has had a lot of gas and distention. LABORATORY DATA: White cell count is 12.9, hemoglobin 10.7. BUN is 12, creatinine 1.0. ASSESSMENT AND PLAN: 1. Perirectal abscess has been addressed. Dr. Dennis removed the packing yesterday and is doing dressing changes. The microbiology from the rectal culture intraoperatively obtained has grown back Citrobacter freundii. It is only resistant to Ancef, and has a slight decreased sensitivity to levofloxacin. I changed the patient over to ceftriaxone for the remainder of hospitalization, and he can likely be discharged on whatever appropriate medication to be used at that time, and will be determined by Surgery and/or primary care. 2. The patient continues continuous positive airway pressure use for sleep apnea. 3. The patient has chronic back pain, which is addressed by his pain medications, but he is very wary of using too much of that medication, and in fact, his family says that he "goes crazy" on morphine. 4. History of chronic obstructive pulmonary disease is noted. 5. Intermittent compression boots are on the patient for deep venous thrombosis prophylaxis. 6. The patient's complaint of gas pain will be addressed with some simethicone. cc: MD Sravanthi Curtis MD
[2019-05-13] MEDS: MYLICON PO SCH ×3 (13:05→21:44)
[2019-05-14] MEDS: PERCOCET-5 PO PRN ×2 (03:18→20:57)
[2019-05-14] MEDS: MYLICON PO SCH ×4 (09:51→20:57)
[2019-05-14] MEDS: FLOMAX PO SCH ×2 (09:51→20:57)
[2019-05-14] MEDS: ROCEPHIN 1 GM in NS 50 ML IV SCH (09:52)
[2019-05-14] MEDS: PRILOSEC PO SCH (09:52)
[2019-05-14] MEDS: PROSCAR PO SCH (09:52)
--- NOTE | 2019-05-14 11:21 | GENERAL SURGERY PROGRESS NOTE ---
DATE: 05/14/2019 SUBJECTIVE: The patient had his catheter removed this morning around 6 a.m. He has not voided yet. Otherwise, he is doing okay. OBJECTIVE: He is a afebrile. Vital signs are stable. General: He is awake, alert, and oriented x3. No acute distress. Skin: The left buttock wound was examined. There is purulent drainage. The wound was repacked by me. No crepitus or necrotic tissue appreciated. ASSESSMENT/PLAN: A 69-year-old male with perirectal abscess, status post incision and drainage, also with urinary retention. We will see if he is able to void successfully. Continue packing the wound for now with Vashe moistened gauze and the antibiotics. I think he may be ready for discharge tomorrow on Bactrim if he is able to void successfully. cc: MD Sravanthi Smith MD
--- NOTE | 2019-05-14 13:29 | PROGRESS NOTE ---
DATE: 05/14/2019 SUBJECTIVE: Mr. Gibbs has a history of acute urinary retention secondary to BPH. He has still not been able to void since discontinuation of Christina catheter. His most recent bladder scan demonstrated 526 mL of urine. He has a perirectal abscess, status post incision and drainage. They are packing the wound with Vashe moistened gauze, and he is on broad-spectrum antibiotics including ceftriaxone. Routine culture grew out Citrobacter freundii sensitive to multiple oral medicines. OBJECTIVE: Vital Signs: Temperature 97.5 degrees, pulse 67, respirations 16, BP 153/76. CV: Regular rate and rhythm,. Lungs: Clear. Abdomen: Soft, nontender with active bowel sounds. Skin: There is a healing perirectal abscess on the left buttock. I was unable to express any gross discharge. The induration and erythema have improved significantly. ASSESSMENT AND PLAN: 1. Acute urinary retention with a history of benign prostatic hyperplasia. I will continue Flomax 0.4 mg twice daily and add Proscar 5 mg daily. If he is not able to void fairly soon and continues with high residuals, I believe that he will need a repeat Christina catheter. Given his history of recurrent urinary retention and an enlarged prostate, I wonder if he would be a candidate for a transurethral resection of prostate procedure as an outpatient. 2. Perirectal abscess. We will continue broad-spectrum antibiotics. Once the patient is able to void, I hope to transition him to oral antibiotics and will continue local wound care. cc: Sravanthi Sutton MD
--- NOTE | 2019-05-15 07:25 | PROGRESS NOTE ---
DATE: 05/15/2019 SUBJECTIVE: The patient had his catheter removed yesterday, and the patient was unable to void. The patient had a bladder scan performed, which showed greater than 500 mL in his bladder. The patient was having frequency and urgency, went to the bathroom and was unable to urinate. Ultimately, catheter was inserted and has drained well. He denies any suprapubic or pelvic pain today. The catheter is draining clear-yellow urine with 1300cc recorded after placement. OBJECTIVE: Vital Signs: Temperature 98.1 degrees, heart rate 76, blood pressure 150/77, oxygen saturation 96% on room air. General: No acute distress. Resting comfortably in bed. Alert and oriented x3. Respiratory: Good respiratory effort without audible wheezing or rales. Cardiovascular: Regular rate and rhythm. Abdomen: Soft, nontender, nondistended. : No suprapubic tenderness. No CVA tenderness. Urethral catheter in place, draining clear-yellow urine. ASSESSMENT AND PLAN: Mr. Gibbs is a 69-year-old with obstructive sleep apnea, benign prostatic hypertrophy, obesity, chronic obstructive pulmonary disease, spinal stenosis, osteoarthritis, who presents in consultation for urinary retention. The patient's catheter was removed yesterday, and the patient was unable to void. The patient normally takes Flomax 2 tablets at home. I think urinary retention is likely related to General Surgery procedure as well as being in the bed for the past several days. Encouraged him to be ambulatory. I told him that I would recommend keeping indwelling catheter in, and follow up with Dr. Zapien in the office in approximately 1 week. If the patient continues to have episodes of urinary retention, we may have to consider addition of finasteride versus surgical intervention for his benign prostatic hypertrophy as he does have an enlarged prostate on digital rectal exam and on CT scan, likely complicated by recent perirectal abscess drainage. Continue antibiotics per General Surgery. Will continue to monitor from a urologic standpoint. Please call with questions or concerns. cc: MD Sravanthi Thomas MD [facility]Jose
[2019-05-15] MEDS ORDERED: LEVAQUIN PO SCH (09:00)
[2019-05-15] MEDS: FLOMAX PO SCH (10:18)
[2019-05-15] MEDS: MYLICON PO SCH (10:19)
[2019-05-15] MEDS: PRILOSEC PO SCH (10:20)
[2019-05-15] MEDS: PROSCAR PO SCH (10:20)
[2019-05-15] MEDS: ROCEPHIN 1 GM in NS 50 ML IV SCH (10:21)
[2019-05-15 11:48] VITALS: BP 149/62
--- NOTE | 2019-05-15 15:53 | DISCHARGE SUMMARY ---
ADMISSION DATE: 05/10/2019 DISCHARGE DATE: 05/15/2019 DISCHARGE DIAGNOSES: 1. Perianal abscess. 2. Acute urinary retention. 3. Benign prostatic hypertrophy with lower urinary symptoms. 4. Chronic obstructive pulmonary disease. 5. History of nicotine abuse. 6. Obstructive sleep apnea. 7. Lumbar spinal stenosis with neurogenic claudication. DISCHARGE INSTRUCTIONS: 1. Return to clinic in 1 week to see me Dr. Murray Sutton. 2. Activity as tolerated. 3. Healthy heart diet. 4. Levaquin 500 mg daily for 10 days, Proscar 5 mg daily, Percocet 5 one q.8 hours p.r.n. pain #15, Prevacid 30 mg daily, prednisone 10 mg daily, Flomax 0.4 mg b.i.d. DISCHARGE PHYSICAL EXAM: This is an elderly frail 69-year-old gentleman no apparent distress. He is afebrile. Vital signs are stable. CV: Regular rate and rhythm. Lungs: Clear. Abdomen: Soft, nontender with active bowel sounds. No hepatosplenomegaly. No abdominal bruits. Mr. Gibbs presented to the ER complaining of left buttock pain. A CT of the abdomen and pelvis demonstrated a left perianal abscess. The patient was placed on broad-spectrum antibiotics. performed a successful incision and drainage of the aforementioned abscess. Antibiotics were adjusted based on the SISI. Local wound care was provided. The wound was packed with Vashe gauze. Cultures grew out Citrobacter freundii. He defervesced and remained afebrile. He had no further purulent discharge. The induration and erythema improved greatly. We will make arrangements for him to have home health for routine wound care. The wound should be packed with Vashe moistened gauze on a daily basis. He will complete a additional 10 day course of oral Levaquin as an outpatient. He does have a history of BPH with lower urinary tract symptoms. Following surgery he was unable to void. A Christina was placed. We attempted to stop the Christina. He was still unable to void. He was having high residuals. A Christina was replaced. We have continued Flomax 0.4 mg b.i.d. and added Proscar 5 mg daily. He will wear a Christina with a leg bag home and is to follow up with Dr. Zapien in 1 week. If he does not respond to medical therapy, he perhaps would be an excellent candidate for TURP procedure. Having reached maximum hospital benefit, the patient was discharged in stable condition. cc: Sravanthi Sutton MD
== END 2019-05-15 13:44 | disposition home health service (06) | DRG 349 ==
LOC: ED 10:57 → EDIPHOLD 17:00 → 3N 19:34
PROVIDERS: ADMIT Internal Medicine; ATTEND Internal Medicine